=== PATIENT | female | born 1995 | race Caucasian/White ===

== ENCOUNTER 2019-03-18 18:41 | Emergency (ER) | payer OTHER ==
--- NOTE | 2019-03-18 18:43 | EDPHY ---
H & P Time Seen by Provider: 03/18/19 18:42 HPI/ROS: HPI: This is a 23-year-old female who presents with CHIEF COMPLAINT: Left ring finger laceration while at work LOCATION: Left ring finger QUALITY: Laceration DURATION: Prior to arrival SIGNS AND SYMPTOMS: + BLEEDING, NO RADIATION, NO NUMBNESS, NO WEAKNESS, NO TINGLING, NO INCONTINENCE, NO DECREASED RANGE OF MOTION, NO SWELLING, + PAIN, NO FEVER TIMING: Acute SEVERITY: Mild CONTEXT: Patient was at work, [employer], cutting with a knife and accidentally cut her left ring finger on the pad. She reports that it immediately started to bleed. She complained of severe, constant, nonradiating pain and now "it is just throbbing." Tetanus up-to-date. DENIES radiation, weakness, decreased range of motion.. MODIFYING FACTORS: Pressure with adequate relief COMMENT: ROS: A COMPREHENSIVE 10 SYSTEM REVIEW OF SYSTEMS IS OTHERWISE NEGATIVE ASIDE FROM ELEMENTS MENTIONED IN THE HISTORY OF PRESENT ILLNESS. MEDICAL/SURGICAL/SOCIAL HISTORY: MEDICAL HISTORY: GENERALLY HEALTHY. DOES NOT TAKE ANY REGULAR MEDICATIONS. SURGICAL HISTORY: DENIES SOCIAL HISTORY: Employed. CONSTITUTIONAL: Slightly anxious, young adult white female, awake and alert, no obvious distress HEENT: Atraumatic and normocephalic, PERRL, EOMI. Nares patent; no rhinorrhea; no nasal mucosal edema. Tympanic membranes clear. Oropharynx clear, no exudate and moist pink mucosa. Airway patent. No lymphadenopathy. No meningismus. Cardiovascular: Normal S1/S2, regular rate, regular rhythm, without murmur rub or gallop. PULMONARY/CHEST: Symmetrical and nontender. Clear to auscultation bilaterally. Good air movement. No accessory muscle usage. ABDOMEN: Soft, nondistended, nontender, no rebound, no guarding, no peritoneal signs, no masses or organomegaly. No CVAT. 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 DI P/PIP/MCP joints show full range of motion of flexion extension with light touch sensation intact. no clubbing, no cyanosis or edema. NEUROLOGICAL: no focal neuro deficits. GCS 15. SKIN: Warm and dry, no erythema. no rash. Good capillary refill. Source: Patient Exam Limitations: No limitations - Personal History Current Tetanus/Diphtheria Vaccine: Yes Current Tetanus Diphtheria and Acellular Pertussis (TDAP): Yes Constitutional: Initial Vital Signs Temperature (C) 37.1 C 03/18/19 18:51 Heart Rate 80 03/18/19 18:51 Respiratory Rate 16 03/18/19 18:51 Blood Pressure 135/60 H 03/18/19 18:51 O2 Sat (%) 97 03/18/19 18:51 O2 Delivery Mode Room Air Allergies/Adverse Reactions: amoxicillin Allergy (Verified 03/18/19 18:50) Home Medications: Medication Instructions Recorded NK [No Known Home Meds] 03/18/19 Medical Decision Making Procedures: Procedure: Laceration repair. Verbal consent was obtained from the patient. The 3 cm, simple, C-shaped laceration on the left ring finger pad was anesthetized in the usual fashion using 3 cc of 1% lidocaine without epi and. The wound was irrigated, draped and explored to its base with a gloved finger. There were no deep structures involved. No tendon injury was identified. The wound was repaired with #4, 5 0 Prolene. Good hemostasis was achieved and patient tolerated procedure well. Xeroform and clean sterile dressing applied. The Procedure was performed by myself. ED Course/Re-evaluation: Tetanus is up-to-date. Local anesthesia provided and copiously irrigated Laceration closed with 4 nonabsorbable sutures Xeroform and clean sterile dressing applied Verbal and written wound care instructions provided No signs of neurovascular compromise/tenting of skin/compartment syndrome/ extremities and joints examined above and below area of concern and are neurovascularly intact/tendon injury. This patient was seen under the supervision of my secondary supervising physician. I evaluated and cared for this patient independently. Differential Diagnosis: Differential diagnosis includes but is not limited to laceration, nerve injury, tendon injury, nail injury. Departure - Departure Disposition: Home, Routine, Self-Care Clinical Impression: Laceration of left ring finger without foreign body without damage to nail Qualifiers: Encounter type: initial encounter Qualified Code(s): S61.215A - Laceration without foreign body of left ring finger without damage to nail, initial encounter Condition: Good Instructions: Care For Your Stitches (ED), Finger Laceration (ED) Additional Instructions: Keep the dressing dry and in place for 48 hours. After 48 hours, you may remove the dressing; wash the site daily with mild soap and water; then pat dry. Apply topical antibiotic ointment and keep covered with sterile dressing until fully healed. Do not soak in a bathtub/dishwater or go swimming until sutures are removed. Take Tylenol 650 mg every 4 hours and/or Ibuprofen 600 mg every 8 hours with food as needed for pain. Wound Care Follow-Up: Removal of sutures in [10] days. Suture removal is complimentary in uncomplicated cases. Infection or abnormal findings would require reevaluation by the MD. In that case, you may be billed. Work Related Injury: Date of Injury (if different from Date of Service): 03/18/2019 Your work restrictions, if any, last only until the next business day. Formal evaluation for work restrictions beyond one day must be arranged through your employer's workman's compensation provider. Restrictions are noted below: Return to work on your next scheduled shift. Do not soak left ring finger until sutures are removed. You may get the area wet after 48 hr. Referrals: Josemanuel Rodriguez MD [Medical Doctor] - Follow Up Only If Needed Stand Alone Forms: Work Excuse
[2019-03-18 18:53] VITALS: BP 135/60
[2019-03-18] MEDS ORDERED: TDAP ADULT 0.5 ML INJ (BOOSTRIX) IM ONE (19:05)
== END 2019-03-18 19:23 | disposition home or self-care (01) ==
PROC: 0HQGXZZ Repair Left Hand Skin, External Approach (ICD-10-PCS; principal; 2019-03-18)
DX: S61.215A Laceration without foreign body of left ring finger without damage to nail, initial encounter (principal); W26.0XXA Contact with knife, initial encounter; Y99.0 Civilian activity done for income or pay